=== PATIENT | female | born 1960 | race Caucasian/White ===

== ENCOUNTER 2023-07-31 17:00 | Inpatient (IN) | payer BC ==
[2023-08-04 13:15] VITALS: BMI 43.1
[2023-08-08] MEDS ORDERED: Heparin 5,000 UNITS/ML VIAL ONE (06:26)
[2023-08-08] MEDS ORDERED: Ketorolac Tromethamine 30 MG/ML VIAL ONE (06:27)
[2023-08-08] MEDS ORDERED: Acetaminophen 500 MG TAB ONE (06:27)
[2023-08-08] MEDS ORDERED: EPINEPHrine 1 MG/ML VIAL ONE (06:55)
[2023-08-08] MEDS ORDERED: Bupivacaine 0.25% HCL 30 ML VIAL ONE ×2 (06:55→07:10)
[2023-08-08] MEDS ORDERED: fentaNYL PF 100 MCG/2 ML SYRINGE ONE (07:03)
[2023-08-08] MEDS ORDERED: PROPOFOL 20 ML ONE (07:03)
[2023-08-08] MEDS ORDERED: Lidocaine 1% PF 5 ML VIAL ONE ×2 (07:03→08:37)
[2023-08-08] MEDS ORDERED: LevoFLOXacin 500 mg/D5W 100 ML BAG ONE (07:31)
[2023-08-08] MEDS ORDERED: Midazolam HCl 2 mg/2 ml Vial ONE (08:22)
[2023-08-08] MEDS ORDERED: Ondansetron PF 4 MG/2 ML Vial ONE ×2 (08:37→10:25)
[2023-08-08] MEDS ORDERED: Dexamethasone 20 MG/5 ML VIAL ONE ×2 (08:37→08:55)
[2023-08-08] MEDS ORDERED: PROPOFOL 200 MG/20 ML VIAL ONE (08:37)
[2023-08-08] MEDS ORDERED: Rocuronium Bromide 10 MG/ML (10ML VIAL) ONE (08:37)
[2023-08-08] MEDS ORDERED: Indocyanine Green 25 MG/10 ML VIAL ONE (10:04)
[2023-08-08] MEDS ORDERED: SUGAMMADEX SODIUM 200 MG/2 ML VIAL ONE (10:25)
[2023-08-08] MEDS ORDERED: Ondansetron HCl/PF 4 MG/2 ML Vial IVP PRN (10:49)
[2023-08-08] MEDS ORDERED: Promethazine HCl 25 MG/ML VIAL IM PRN ×2 (10:49→11:18)
[2023-08-08] MEDS ORDERED: Ondansetron PF 4 MG/2 ML Vial IVP PRN (11:18)
[2023-08-08] MEDS ORDERED: Dextrose 5% in Water 1,000 ML IV PRN (11:18)
[2023-08-08] MEDS ORDERED: diphenhydrAMINE 50 MG/ML VIAL IVP PRN (11:18)
[2023-08-08] MEDS ORDERED: Ipratropium/Albuterol 3 ML NEB NEB PRN (11:18)
[2023-08-08] MEDS ORDERED: Hydrocodone-Acetamin 15 ML UDCUP PO PRN (11:18)
[2023-08-08] MEDS ORDERED: Morphine 2 MG/ML VIAL SLOW IVP PRN (11:18)
[2023-08-08] MEDS ORDERED: hydrALAZINE 20 MG/ML VIAL SLOW IVP PRN (11:18)
[2023-08-08] MEDS ORDERED: Dextrose 50% Abboject 50 ML SYRINGE SLOW IVP PRN (11:18)
[2023-08-08] MEDS ORDERED: Glucagon 1 MG/ML KIT IM PRN (11:18)
[2023-08-08] MEDS ORDERED: Morphine 4 MG/ML VIAL SLOW IVP PRN (11:18)
[2023-08-08] MEDS ORDERED: fentaNYL 50 mcg/mL 1 mL Vial ONE (11:28)
[2023-08-08] MEDS: Ketorolac Tromethamine 30 MG/ML VIAL IVP SCH ×2 (14:00→17:48)
[2023-08-08] MEDS: D5 1/2 NS w/20 mEq KCL 1,000 ML IV SCH ×2 (14:01→19:51)
[2023-08-09] MEDS: Ketorolac Tromethamine 30 MG/ML VIAL IVP SCH ×3 (00:36→12:42)
[2023-08-09] MEDS: D5 1/2 NS w/20 mEq KCL 1,000 ML IV SCH ×2 (03:34→11:36)
[2023-08-09 05:17] LABS: #Monocytes 1.2 thou/uL (0.11-0.59); #Neutrophils 9.9 thou/uL (1.40-6.50); %Basophils 0.1 % (0.0-1.0); %Lymphocytes 12.7 % (21.0-51.0); %Monocytes 9.5 % (0.0-10.0); %Neutrophils 77.3 % (42.0-75.0); Hematocrit 31.5 % (36.0-47.0); Hemoglobin 10.1 g/dL (12.0-16.0); Mean Corpuscular HGB CONC 32.1 g/dL (32.0-36.0); Mean Corpuscular Hemoglobin 29.5 pg (27.0-31.0); Mean Corpuscular Volume 92.1 fl (78.0-98.0); Mean Platelet Volume 10.1 fL (7.4-10.4); Platelet Count 262 10x3/uL (130-400); RBC Distribution Width 13.6 % (11.5-14.5); Red Blood Cell (RBC) Count 3.42 mill/uL (4.20-5.40); White Blood Cell (WBC) Count 12.8 10x3/uL (4.8-10.8)
[2023-08-09 05:42] LABS: Anion Gap 14 mmol/L (10-20); BUN (Urea Nitrogen) 8 mg/dL (9.8-20.1); Calc. Creatinine Clearance 118 mL/min (70-130); Calcium 8.3 mg/dL (7.8-10.44); Carbon Dioxide 21 mmol/L (23-31); Chloride 107 mmol/L (98-107); Estimated GFR 95; Glucose 127 mg/dL (80-115); Sodium 138 mmol/L (136-145)
[2023-08-09] MEDS ORDERED: Pantoprazole 40 MG VIAL IVP SCH (09:00)
[2023-08-09 11:48] VITALS: BP 137/81; TEMP 97.8
== END 2023-08-09 15:10 | disposition home or self-care (01) | DRG 621 ==
LOC: SURG A 08-08 06:05
PROVIDERS: ADMIT Specialist; ATTEND Specialist
PROC: 0DB64Z3 Excision of Stomach, Percutaneous Endoscopic Approach, Vertical (ICD-10-PCS; principal; 2023-08-08)
PROC: 3E033XZ Introduction of Vasopressor into Peripheral Vein, Percutaneous Approach (ICD-10-PCS; 2023-08-08)
PROC: 8E0W4CZ Robotic Assisted Procedure of Trunk Region, Percutaneous Endoscopic Approach (ICD-10-PCS; 2023-08-08)
DX: E66.01 Morbid (severe) obesity due to excess calories (principal); F10.90 Alcohol use, unspecified, uncomplicated; Z68.41 Body mass index [BMI] 40.0-44.9, adult; Z79.899 Other long term (current) drug therapy; Z98.51 Tubal ligation status; Z82.49 Family history of ischemic heart disease and other diseases of the circulatory system; Z80.9 Family history of malignant neoplasm, unspecified; Z88.0 Allergy status to penicillin
CPT/HCPCS: 36415; 80048; 85025; 88307; C9113; J0171; J1100; J1644; J1650; J1885; J1956; J2250; J2270; J2272; J2405; J2704; J3010; J3480; S0020

== ENCOUNTER 2023-07-31 17:09 | Outpatient (CLI) | payer BC ==
[2023-07-31 17:58] LABS: #Eosinphils 0.1 10x3/uL (0.0-0.5); #Monocytes 0.7 10x3/uL (0.0-1.1); #Neutrophils 5.4 10x3/uL (1.5-8.4); %Basophils 0.3 % (0.0-2.0); %Eosinophils 0.9 % (0.0-6.0); %Lymphocytes 35.6 % (18.0-47.0); %Monocytes 6.9 % (0.0-10.0); %Neutrophils 56.1 % (40.0-75.0); Hematocrit 40.9 % (34.9-44.5); Hemoglobin 13.4 g/dL (12.0-15.5); Mean Corpuscular HGB CONC 32.8 g/dL (32.0-36.0); Mean Corpuscular Hemoglobin 29.2 pg (27.0-33.0); Mean Corpuscular Volume 89.1 fl (81.6-98.3); Mean Platelet Volume 10.2 fl (7.4-10.4); Platelet Count 350 10x3/uL (150-450); RBC Distribution Width 13.2 % (11.5-14.5); Red Blood Cell (RBC) Count 4.59 10x6/uL (3.90-5.03); White Blood Cell (WBC) Count 9.6 10x3/uL (3.5-10.5)
[2023-07-31 18:40] LABS: Anion Gap 14 mmol/L (10-20); BUN (Urea Nitrogen) 15 mg/dL (9.8-20.1); Calc. Creatinine Clearance 0 mL/min (70-130); Calcium 9.6 mg/dL (7.8-10.44); Carbon Dioxide 24 mmol/L (23-31); Chloride 103 mmol/L (98-107); Estimated GFR 87; Glucose 94 mg/dL (80-115); Sodium 137 mmol/L (136-145)
== END 2023-07-31 17:10 | disposition home or self-care (01) ==
LOC: LABBT 17:09
PROVIDERS: ATTEND Specialist
DX: Z01.818 Encounter for other preprocedural examination (principal); E66.01 Morbid (severe) obesity due to excess calories
CPT/HCPCS: 80048; 85025; 93005; 93010